=== PATIENT | male | born 1990 | race Native Hawaiian/Other Pacific Islander ===

== ENCOUNTER 2018-05-17 23:24 | Emergency (ER) | payer OTHER ==
[2018-05-17 23:27] VITALS: BMI 36.9
[2018-05-17 23:47] VITALS: RESP 18
--- NOTE | 2018-05-18 00:21 | C.PDOC ---
History Of Present Illness 27 y/o male presents to the ED for evaluation of palpitations. Patient states that he did cocaine today, and since then is feeling very anxious and heart is racing. Denies CP, SOB, dizziness, or other associated symptoms. Also states he is addicted to sex and requests to be tested for STIs. He denies any penile discharge, lesions, dysuria, or fever. Additionally patient requests to talk to someone about his drug use. No suicidal ideation, homicidal ideation, or auditory/visual hallucinations. Time Seen by Provider: 05/18/18 00:15 Chief Complaint (Nursing): Anxiety History Per: Patient History/Exam Limitations: no limitations Onset/Duration Of Symptoms: Hrs Current Symptoms Are (Timing): Still Present Modifying Factor(s): Cocaine Associated Symptoms: Anxiety Past Medical History Reviewed: Historical Data, Nursing Documentation, Vital Signs Vital Signs: Last Vital Signs Temp 98.2 F 05/18/18 03:00 Pulse 78 05/18/18 03:00 Resp 18 05/18/18 03:00 BP 128/72 05/18/18 03:00 Pulse Ox 99 05/18/18 03:00 - Medical History PMH: Anxiety, Bipolar Disorder, Depression, HTN Surgical History: No Surg Hx Family History: States: Unknown Family Hx - Social History Hx Alcohol Use: Yes Hx Substance Use: Yes (cocaine) - Immunization History Hx Tetanus Toxoid Vaccination: No Hx Influenza Vaccination: No Hx Pneumococcal Vaccination: No Review Of Systems Except As Marked, All Systems Reviewed And Found Negative. Constitutional: Negative for: Fever Cardiovascular: Positive for: Palpitations. Negative for: Chest Pain Respiratory: Negative for: Shortness of Breath Genitourinary: Negative for: Dysuria, Penile Discharge, Rash, Penile Pain Neurological: Negative for: Dizziness Psych: Positive for: Anxiety Physical Exam - Physical Exam Appears: No Acute Distress, Other (Vitals reviewed, blood pressure mildly elevated) Skin: Warm, Dry Head: Atraumatic, Normacephalic Eye(s): bilateral: Normal Inspection (pupils appear mid-sized), PERRL, EOMI Nose: Discharge (nasal congestion noted) Oral Mucosa: Moist Neck: Normal ROM, Supple Chest: Symmetrical Cardiovascular: Rhythm Regular (with resting tachycardia at 102 bpm), Other (No murmurs, heaves, or thrills) Respiratory: Normal Breath Sounds, No Rales, No Rhonchi, No Wheezing Gastrointestinal/Abdominal: Soft, No Tenderness, No Distention Extremity: Normal ROM, No Tenderness, No Deformity, No Swelling, Other (no external stigmata of IV drug use) Pulses: Left Radial: Normal, Right Radial: Normal Neurological/Psych: Oriented x3, Normal Speech, Normal Cranial Nerves, Other ( Appears very anxious, tearful during interview) ED Course And Treatment - Laboratory Results Result Diagrams: 05/18/18 00:54 05/18/18 00:54 ECG: Interpreted By Me, Viewed By Me ECG Rhythm: Sinus Rhythm ECG Interpretation: Normal Interpretation Of ECG: NSR at 79 bpm, early repolarization, no ST elevations, no ST segment changes. Rate From EC O2 Sat by Pulse Oximetry: 98 (RA) Pulse Ox Interpretation: Normal Medical Decision Making Medical Decision Making: Impression: Cocaine toxicity, Anxiety disorder Plan: --EKG --Routine labs --Xanax PO --Crisis will speak to patient Progress/Updates: EKG is normal. Disposition - Disposition Referrals: Non [facility] Provider, [Primary Care Provider] - Disposition: HOME/ ROUTINE Disposition Time: 04:49 Condition: GOOD Instructions: Cocaine Use Disorder, Anxiety, Adult (DC) Forms: [email or web address] (Slovenian) Print Language: GREENLANDIC - Clinical Impression Clinical Impression: Anxiety, Cocaine abuse - Scribe Statement The provider has reviewed the documentation as recorded by the Scribe (Misty Brand) Provider Attestation: All medical record entries made by the Scribe were at my direction and personally dictated by me. I have reviewed the chart and agree that the record accurately reflects my personal performance of the history, physical exam, medical decision making, and the department course for this patient. I have also personally directed, reviewed, and agree with the discharge instructions and disposition.
[2018-05-18 00:58] LABS: BASO # 0.1 K/uL (0.0-0.2); BASO % 0.8 % (0.0-2.0); HEMOGLOBIN 14.5 g/dL (12.0-18.0); LYMPH # 1.1 K/uL (1.0-4.3); MEAN CELL VOLUME 79.9 fL (80.0-94.0); MEAN CORPUSCULAR HEMOGLOBIN 27.5 pg (27.0-31.0); MEAN CORPUSCULAR HGB CONC 34.5 g/dL (33.0-37.0); MONO # 0.4 K/uL (0.0-0.8); MONO % 5.5 % (0.0-10.0); NEUT # 5.9 K/uL (1.8-7.0); NEUT % 78.7 % (50.0-75.0); RBC 5.28 Mil/uL (4.40-5.90); RED CELL DISTRIBUTION WIDTH 12.6 % (11.5-14.5); WHITE BLOOD COUNT 7.5 K/uL (4.8-10.8)
[2018-05-18 00:59] LABS: URINE BILIRUBIN NEGATIVE (NEGATIVE); URINE BLOOD NEGATIVE (NEGATIVE); URINE CLARITY Clear (Clear); URINE COLOR Colorless (YELLOW); URINE GLUCOSE (UA) NORMAL (Normal); URINE LEUKOCYTE ESTERASE NEG Leu/uL (Negative); URINE PROTEIN NEGATIVE (NEGATIVE); URINE UROBILINOGEN NORMAL mg/dL (0.2-1.0)
[2018-05-18 01:09] LABS: ALB/GLOB RATIO 1.6 (1.0-2.1); ALT/SGPT 37 U/L (21-72); AST/SGOT 30 U/L (17-59); BLOOD UREA NITROGEN 8 mg/dL (9-20); CALCIUM 9.5 mg/dl (8.6-10.4); GFR AFRICAN-AMERICAN > 60; GFR NON-AFRICAN AMERICAN > 60
[2018-05-18 01:17] LABS: BARBITURATES, UR NEGATIVE (NEGATIVE); BENZODIAZEPINES, UR NEGATIVE (NEGATIVE); OPIATES, UR NEGATIVE (NEGATIVE); PHENCYCLIDINE, UR NEGATIVE (NEGATIVE)
[2018-05-18 04:03] VITALS: BP 128/72; PULSE 78; TEMP 98.2
[2018-05-18 04:50] VITALS: O2SAT 98
== END 2018-05-18 03:00 | disposition home or self-care (01) ==
LOC: SUPCPDRO 23:24 → C.ER 23:24
DX: F14.10 Cocaine abuse, uncomplicated (principal); F41.9 Anxiety disorder, unspecified; I10 Essential (primary) hypertension